=== PATIENT | female | born 1955 | race Caucasian/White ===

== ENCOUNTER 2016-12-01 06:25 | Day surgery (SDC) | payer MEDICARE, MEDICAID ==
[~2016-12-01] VITALS: Ht 160 cm; Wt 59.7 kg
[~2016-12-01 06:25] MED LIST: ACTO35TA PO; ALPR-138 PO; ASPI325T24 PO; CEPH500C3 PO; DIGO.125 PO; ENAL20TA81 PO; FURO1TAB93 PO; GEMF600 PO; HYDR10TA16 PO; LOVA1TAB47 PO; TOPR50TA PO; TREN400T PO
[2016-12-01] MEDS ORDERED: CHLORHEXIDINE GLUCONATE 2 % 1 PACK (2 CLOTHS) TOPICAL SCH (06:45)
[2016-12-01] MEDS ORDERED: ceFAZolin 2 GM PREMIX 50 ML IV SCH (06:45)
[2016-12-01] MEDS ORDERED: MUPIROCIN 2% OINT 1 APPLIC/GM SYR NASAL SCH (06:45)
[2016-12-01] MEDS ORDERED: POVIDONE IODINE 5% (ANTISEPSIS KIT) 4 APPLICATIONS EACH NARE SCH (06:45)
[2016-12-01] MEDS ORDERED: LORazepam 1 MG TAB SL SCH (06:45)
[2016-12-01] MEDS ORDERED: NS 1000 ML IV SCH (06:45)
[2016-12-01] MEDS ORDERED: INSULIN HUMAN REGULAR 1,000 UNITS/10 ML VIAL SQ PRN (07:00)
[2016-12-01] MEDS ORDERED: POVIDONE IODINE 5% (ANTISEPSIS KIT) 4 APPLICATIONS EACH NARE PRN (07:00)
[2016-12-01] MEDS ORDERED: LACTATED RINGER'S 1000 ML IV PRN (07:00)
[2016-12-01] MEDS ORDERED: CHLORHEXIDINE GLUCONATE 2 % 1 PACK (2 CLOTHS) TOPICAL PRN (07:00)
[2016-12-01] MEDS ORDERED: SODIUM CHLORID 0.9% 500 ML IV PRN (07:00)
[2016-12-01] MEDS ORDERED: METOPROLOL TARTRATE 25 MG TAB PO PRN (07:00)
[2016-12-01 07:21] VITALS: BP 120/68; PULSE 55; RESP 18; TEMP 97.9; O2SAT 99
[2016-12-01 07:24] LABS: AUTOMATED NEUTROPHIL # 7.6 TH/MM3 (1.8-7.7); BASOPHIL % 0.4 % (0.0-2.0); EOSINOPHIL # 0.2 TH/MM3 (0-0.4); EOSINOPHIL % 1.8 % (0.0-4.0); HEMATOCRIT 38.9 % (35.0-46.0); HEMO FLAGS DIFF FINAL; LYMPH % 17.8 % (9.0-44.0); LYMPHOCYTE # 1.9 TH/MM3 (1.0-4.8); MEAN CELL VOLUME 95.6 FL (80.0-100.0); MEAN CORPUSCULAR HEMOGLOBIN 31.8 PG (27.0-34.0); MEAN CORPUSCULAR HGB CONC 33.3 % (32.0-36.0); MONO % 8.3 % (0.0-8.0); NEUT % 71.7 % (16.0-70.0); PLATELET COUNT 248 TH/MM3 (150-450); RED BLOOD COUNT 4.07 MIL/MM3 (4.00-5.30); RED CELL DISTRIBUTION WIDTH 20.5 % (11.6-17.2); WHITE BLOOD COUNT 10.7 TH/MM3 (4.0-11.0)
[2016-12-01 07:33] LABS: APTT (PATIENT) 26.1 SEC (24.3-30.1); INTERNATIONAL NORMALIZED RATIO 0.9 RATIO; PROTHROMBIN TIME - PATIENT 10.4 SEC (9.8-11.6)
[2016-12-01] MEDS ORDERED: NITR0.4S SL (07:33)
[2016-12-01] MEDS ORDERED: LOVA40TA PO (07:33)
[2016-12-01] MEDS ORDERED: METO50TA11 PO (07:33)
[2016-12-01] MEDS ORDERED: FURO40TA PO (07:33)
[2016-12-01] MEDS ORDERED: CLOP75TA PO (07:33)
[2016-12-01] MEDS ORDERED: ENAL20TA PO (07:33)
[2016-12-01] MEDS ORDERED: GEMF600T PO (07:33)
[2016-12-01] MEDS ORDERED: ASPI81TA11 PO (07:33)
[2016-12-01] MEDS ORDERED: DIGO0.12 PO (07:33)
[2016-12-01 07:39] LABS: BICARBONATE 24.8 MEQ/L (21.0-32.0); POTASSIUM 3.8 MEQ/L (3.5-5.1)
[2016-12-01] MEDS ORDERED: ceFAZolin INJ 1,000 MG VIAL ONE (07:44)
[2016-12-01] MEDS ORDERED: LIDOCAINE HCL 2% 50 ML VIAL ONE (07:44)
[2016-12-01] MEDS ORDERED: KETAMINE HCL 500 MG/5 ML VIAL ONE (08:18)
[2016-12-01] MEDS ORDERED: LEVOFLOXACIN 500 MG PREMIX INJ 100 ML IV ONE (08:19)
--- NOTE | 2016-12-01 08:58 | PD.CARD ---
Dual Defib Replacement PROCEDURE DATE: Dec 01, 2016 NYHA Classification: Class II (Mild) Prevention: Primary Dual Defib Replacement PROCEDURE 1. Dual-chamber defibrillator removal. 2. Dual-chamber defibrillator replacement. 3. Pocket revision. 4. Device testing. Ms. Douglas is a 61 -year-old female with hx of ischemic cardiomyopathy, Defibrillator currently end of life, EF 30%, on optimal medical management per guidelines, admitted for generator replacement and device testing. The risks, the nature and the benefit of the procedure clearly stated to her. The risks include pneumothorax, cardiac perforation, stroke and even . She understood and agreed to proceed. PROCEDURE After written informed consent was obtained, the patient was brought to the EP lab where she was prepped and draped in the usual sterile fashion. Conscious sedation was initiated and maintained throughout the procedure by anesthesiologist. Once sedation was verified, the left infraclavicular area was anesthetized with 2% Xylocaine. Using #11 blade scalpel, a 3-cm incision was made over the existing generator. The incision was then taken down deep fascial layers generator exposed. Once exposed, it was removed from the pocket. Scar tissue was removed around the lead pocket revision was performed. Pocket was expanded. Then, the lead was disconnected from the generator and tested. After adequate pacing and sensing thresholds were obtained. The leads were connected to the new generator and placed into the pocket. I then proceeded with NIPS. Initial induction consisted of T-wave shock from ventricular fibrillation which was adequately detected and treated by the ICD generator delivering the 20 joule defibrillatory shock converting the patient back into sinus rhythm. Shocking impedance 49 ohms, charge time 3.3 seconds. At that point NIPS was completed. I then proceeded with wound closure. The deep fascial layer was approximated using 2-0 Vicryl suture in a continuous fashion. The subcutaneous layer was approximated using 2-0 Vicryl suture in a continuous fashion. The subcuticular layer was approximated using 2-0 Vicryl suture in a continuous fashion. Dermabond adhesive was applied to the wound followed by sterile pressure dressing. There was no complication. The patient tolerated procedure. Blood loss minimal. 1. Explanted hardware: The explanted defibrillator is a [employer] Van model number [id number], serial number [id number]. That was implanted in 2009. For information about existing lead please refer to previous dictation. 2. Implanted hardware: The implanted defibrillator generator is a [employer] Van, model number [id number], serial number [id number]. 3. Threshold: The right atrial pacing threshold in the bipolar mode was 1.0 volt at 0.4 milliseconds. Lead impedance 440 ohms and P-wave at 3.5 mV. The right ventricular pacing threshold in the bipolar mode was 1.2 volts at 0.5 milliseconds. Lead impedance 400 ohms and R-wave at 12.0 mV. The right ventricle defibrillatory threshold less than or equal to 20 joules, shocking impedance 49 ohms, charge time 3.3 seconds. 4. Settings: The device is set in a DDD 50, upper limit 120 beats per minute. AV delay extended to maximum facilitate A pacing V sensing. Defibrillatory portioned for two zones, one zone for ventricular tachycardia between 170-250 beats per minute. Initial therapy consists of one burst of ATP, one ramp, 81%, 10pulses, 10 ms decremental followed by 20 then 30and all subsequent shocks at 40 joules defibrillatory shock. Second zone for ventricular fibrillation above 250 beats per minute, first therapy at 30 and all subsequent shocks at 40 joule defibrillatory shock. CONCLUSIONS Successful defibrillator removal, defibrillator replacement and device testing. COMMENT/RECOMMENDATIONS The patient will be transferred to telemetry unit. She will be observed, when stable can be discharged home Ольга Dowling MD Dec 01, 2016 08:58
[2016-12-01] MEDS ORDERED: ACETAMINOPHEN/CODEINE 300 MG/30 MG TAB PO PRN ×2 (09:00)
[2016-12-01] MEDS ORDERED: ONDANSETRON HCL 4 MG/2 ML VIAL IV PUSH PRN (09:00)
[2016-12-01] MEDS ORDERED: SODIUM CHLORIDE 0.9% FLUSH 10 ML FLUSH IV FLUSH PRN (09:00)
[2016-12-01] MEDS ORDERED: SODIUM CHLORIDE 0.9% FLUSH 10 ML FLUSH IV FLUSH SCH (09:00)
[2016-12-01] MEDS ORDERED: HYDR-3288 PO (09:02)
[2016-12-01] MEDS ORDERED: CEPH-460 PO (09:02)
[2016-12-01] MEDS ORDERED: PROPOFOL 200 MG/20 ML AMP IV ONE (12:00)
[2016-12-01] MEDS ORDERED: ePHEDrine/NS 25 MG/5 ML SYR IV ONE (12:00)
[2016-12-01] MEDS ORDERED: MIDAZOLAM HCL 2 MG/2 ML VIAL IV ONE (12:00)
--- NOTE | 2016-12-01 21:50 | EKG ---
Date Performed: 12/01/2016 Time Performed: 07:22:30 PTAGE: 61 years EKG: Sinus bradycardia. Possible septal infarct - age undetermined Inferior/lateral ST-T changes Low QRS voltages in precordial leads Abnormal ECG PREVIOUS TRACING : 04/25/2009 06.07 Compared to prior tracing no significant change DOCTOR: Rima Brown Interpretating Date/Time 12/01/2016 21:49:07
== END 2016-12-01 11:06 | disposition home or self-care (01) ==
LOC: HDOC 06:25 → HDIC 06:25 → HDOC 11:06
PROVIDERS: ATTEND Internal Medicine Interventional Cardiology
DX: Z45.02 Encounter for adjustment and management of automatic implantable cardiac defibrillator (principal); I11.0 Hypertensive heart disease with heart failure; I50.9 Heart failure, unspecified; I25.5 Ischemic cardiomyopathy; I73.9 Peripheral vascular disease, unspecified; I48.91 Unspecified atrial fibrillation; Z87.891 Personal history of nicotine dependence; Z79.82 Long term (current) use of aspirin; Z79.01 Long term (current) use of anticoagulants; Z86.718 Personal history of other venous thrombosis and embolism
CPT/HCPCS: 00530; 33263; 80048; 85025; 85610; 85730; 86077; 86850; 86870; 86900; 86901; 86902; 86920; 86922; 93005; 93641; C1721; J0690; J1956; 33264; J2250; J3010